=== PATIENT | male | born 1985 | race Caucasian/White ===

== ENCOUNTER 2016-11-13 18:13 | Emergency (ER) | payer MEDICAID, OTHER ==
[2016-11-13 18:20] VITALS: RESP 18
--- NOTE | 2016-11-13 18:54 | ED ---
Abdominal Pain HPI - General Chief Complaint: Abdominal Pain Stated Complaint: abdominal pain, bulge on top of stomach Time Seen by Provider: 11/13/16 18:21 Source: patient, family Mode of arrival: wheelchair Limitations: no limitations - History of Present Illness Initial Comments: This is a 30-year-old male who presents emergency department for abdominal pain. He states it started this morning and has persisted throughout the day. He states that it is midline in his abdomen and worse with pushing on it. He states that he also has noticed some bulging in his abdomen. He is notices these bulges previously however never had them evaluated. He denies any constipation or diarrhea. No vomiting. No other complaints. - Related Data Home Medications Medication Instructions Recorded Confirmed Cyanocobalamin (Vitamin B-12) 1,000 mcg PO DAILY 11/13/16 11/13/16 [Vitamin B-12] Levothyroxine Sodium [Synthroid] 75 mcg PO DAILY 11/13/16 11/13/16 Multivitamins, Thera [Multivitamin 1 tab PO DAILY 11/13/16 11/13/16 (formulary)] Allergies Allergy/AdvReac Type Severity Reaction Status Date / Time No Known Allergies Allergy Verified 11/13/16 18:50 Review of Systems ROS Statement: Those systems with pertinent positive or pertinent negative responses have been documented in the HPI. ROS Other: All systems not noted in ROS Statement are negative. Past Medical History Past Medical History: Thyroid Disorder Additional Past Medical History / Comment(s): Scoliosis, Down syndrome, tubes in bilateral ears History of Any Multi-Drug Resistant Organisms: None Reported Past Surgical History: Adenoidectomy, Tonsillectomy Past Psychological History: Depression, PTSD Smoking Status: Never smoker Past Alcohol Use History: Occasional Past Drug Use History: None Reported General Exam - General Exam Comments Initial Comments: Constitutional: Awake alert Appears comfortable Head: Normocephalic atraumatic Eyes: no conjunctival injection No scleral icterus EOMI Neck: No JVD Supple Heart: Regular rate rhythm normal S1-S2 no murmurs Lungs: Clear to auscultation bilaterally No wheezing No rales Abdomen: Soft nondistended tender to palpation generally without rebound or guarding, there are 2 midline bulges which appear to be midline hernias. These were reduced at bedside however the patient had significant tenderness with reduction. Extremities: Non edematous DP pulses intact Radial pulses intact Neuro: A&Ox3 No focal neurologic deficits Psych: Appropriate mood and affect Limitations: no limitations Course Vital Signs 11/13/16 18:16 Temperature 98.6 F Pulse Rate 81 Respiratory 18 Rate Blood Pressure 142/87 O2 Sat by Pulse 100 Oximetry Medical Decision Making - Medical Decision Making This is a 30-year-old male presents emergency department for abdominal pain and abdominal lumps. Clinically he appeared to have to midline hernias that were reducible at bedside. Computed tomography scan confirmed fat-containing ventral hernias. The patient's pain was improved after reduction of these hernias. At this time the patient can go home. I told to follow-up with his primary care doctor. He is also given surgery for evaluation if requested. Patient did take Motrin Tylenol as needed at home. He can return if he has worsening or changing symptoms. All questions were answered. - Lab Data Result diagrams: 11/13/16 18:45 11/13/16 18:45 Lab Results 11/13/16 11/13/16 Range/Units 18:45 18:45 WBC 8.2 (3.8-10.6) k/uL RBC 5.16 (4.30-5.90) m/uL Hgb 16.7 (13.0-17.5) gm/dL Hct 49.0 (39.0-53.0) % MCV 95.0 (80.0-100.0) fL MCH 32.4 (25.0-35.0) pg MCHC 34.2 (31.0-37.0) g/dL RDW 13.1 (11.5-15.5) % Plt Count 294 (150-450) k/uL Neutrophils % 65 % Lymphocytes % 22 % Monocytes % 7 % Eosinophils % 1 % Basophils % 1 % Neutrophils # 5.3 (1.3-7.7) k/uL Lymphocytes # 1.8 (1.0-4.8) k/uL Monocytes # 0.6 (0-1.0) k/uL Eosinophils # 0.1 (0-0.7) k/uL Basophils # 0.1 (0-0.2) k/uL Sodium 139 (137-145) mmol/L Potassium 4.5 (3.5-5.1) mmol/L Chloride 104 (98-107) mmol/L Carbon Dioxide 25 (22-30) mmol/L Anion Gap 10 mmol/L BUN 19 (9-20) mg/dL Creatinine 1.20 (0.66-1.25) mg/dL Est GFR (MDRD) Af Amer >60 (>60 ml/min/1.73 sqM) Est GFR (MDRD) Non-Af >60 (>60 ml/min/1.73 sqM) Glucose 88 (74-99) mg/dL Calcium 9.0 (8.4-10.2) mg/dL Total Bilirubin 0.4 (0.2-1.3) mg/dL AST 41 (17-59) U/L ALT 55 (21-72) U/L Alkaline Phosphatase 80 (38-126) U/L Total Protein 7.1 (6.3-8.2) g/dL Albumin 4.2 (3.5-5.0) g/dL Disposition Clinical Impression: Ventral hernia, Abdominal pain Disposition: HOME SELF-CARE Condition: Stable Instructions: Abdominal Pain (ED), Ventral Hernia (ED) Referrals: Adrian Rogers MD [Primary Care Provider] - 1-2 days Abiola Weaver MD [STAFF PHYSICIAN] - 1-2 days
[2016-11-13 19:08] LABS: Basophils # (A) 0.1 k/uL (0-0.2); Basophils % (A) 1 %; CH 32.9; CHCM 34.8; Eosinophils # (A) 0.1 k/uL (0-0.7); Eosinophils % (A) 1 %; HDW 2.53; HGB 16.7 gm/dL (13.0-17.5); Luc # (Auto) 0.29; Luc % (Auto) 4; Lymphocytes # (A) 1.8 k/uL (1.0-4.8); Lymphocytes % (A) 22 %; MCH 32.4 pg (25.0-35.0); MCHC 34.2 g/dL (31.0-37.0); Mean Platelet Volume 6.4; Monocytes # (A) 0.6 k/uL (0-1.0); Monocytes % (A) 7 %; Neutrophils # (A) 5.3 k/uL (1.3-7.7); Neutrophils % (A) 65 %; RBC 5.16 m/uL (4.30-5.90); RDW 13.1 % (11.5-15.5); WBC 8.2 k/uL (3.8-10.6); WBC (Perox) 8.04
[2016-11-13 19:12] LABS: ALT 55 U/L (21-72); AST 41 U/L (17-59); Alkaline Phosphatase 80 U/L (38-126); Anion Gap 10 mmol/L; Blood Urea Nitrogen 19 mg/dL (9-20); Carbon Dioxide 25 mmol/L (22-30); Chloride 104 mmol/L (98-107); Glucose 88 mg/dL (74-99); Non-African American GFR(MDRD) >60 (>60 ml/min/1.73 sqM); Potassium 4.5 mmol/L (3.5-5.1); Sodium 139 mmol/L (137-145); Total Bilirubin 0.4 mg/dL (0.2-1.3); Total Protein 7.1 g/dL (6.3-8.2)
--- NOTE | 2016-11-13 19:31 | CT ---
EXAMINATION TYPE: CT abdomen pelvis wo con DATE OF EXAM: 11/13/2016 COMPARISON: NONE HISTORY: Mid Abdominal pain CT DLP: 704.4 mGycm Examination of the solid and hollow viscera is limited given the lack of contrast. FINDINGS: LUNG BASES: No evidence for nodule. No evidence for infiltrate. LIVER/GB: The gallbladder is unremarkable. No space-occupying hepatic lesion. PANCREAS: No pancreatic mass identified. No inflammatory process seen. SPLEEN: No evidence for splenomegaly. No intrasplenic lesions seen. ADRENALS: No adrenal nodules identified. No evidence for thickening. KIDNEYS: No evidence for renal mass. No nephrolithiasis. No hydronephrosis. BOWEL: Appendix has a normal appearance. No evidence of bowel obstruction. No inflammatory process. Lymph nodes: No evidence for adenopathy greater than 1 cm. Abdominal aorta: Atheromatous changes seen. No evidence for aneurysm. Genital organs: No significant abnormality. Other: Small fat-containing midline anterior abdominal wall hernia at the level of the pancreas seen best on axial image 69 and coronal image 63. additional supraumbilical midline hernia also containing fat. Scoliotic curvature lumbar spine convex to the right. IMPRESSION: 1. SMALL MIDLINE VENTRAL HERNIAS AT 2 SITES NOTED ABOVE. EXAMINATION IS OTHERWISE UNREMARKABLE.
[2016-11-13 19:58] VITALS: BP 128/67; PULSE 79; TEMP 97.9
== END 2016-11-13 20:00 | disposition home or self-care (01) ==
LOC: EC 18:13
DX: K43.9 Ventral hernia without obstruction or gangrene (principal); E07.9 Disorder of thyroid, unspecified; Z79.899 Other long term (current) drug therapy
CPT/HCPCS: 36415; 74176; 80053; 85025; 99284

== ENCOUNTER → 2018-05-02 | Outpatient (CLI) | payer MEDICAID, OTHER ==
[2018-05-02 11:05] LABS: HCT 54.4 % (39.0-53.0); HGB 17.6 gm/dL (13.0-17.5); MCH 31.8 pg (25.0-35.0); MCHC 32.3 g/dL (31.0-37.0); MCV 98.4 fL (80.0-100.0); Mean Platelet Volume 5.9; Platelet Count 303 k/uL (150-450); RBC 5.53 m/uL (4.30-5.90); RDW 13.3 % (11.5-15.5); WBC 4.5 k/uL (3.8-10.6)
[2018-05-02 17:06] LABS: Albumin 4.4 g/dL (3.80-4.90); Albumin/Globulin Ratio 1.83 (1.60-3.17); Anion Gap 6.8 mmol/L (4.00-12.00); Calcium 9.6 mg/dL (8.7-10.3); Carbon Dioxide 30.2 mmol/L (21.6-31.8); Globulin 2.4 g/dL (1.6-3.3); LDL Cholesterol,Calculated 156.2 mg/dL (0.0-131.0); Potassium 4.6 mmol/L (3.5-5.5); Total Bilirubin 0.5 mg/dL (0.2-1.2); Total Protein 6.8 g/dL (6.2-8.2); VLDL Calculation 40.8 mg/dL (5.00-40.00)
== END ==
LOC: LABWHC1 10:31
PROVIDERS: ATTEND Family Medicine
DX: Z00.01 Encounter for general adult medical examination with abnormal findings (principal); E03.9 Hypothyroidism, unspecified
CPT/HCPCS: 36415; 80053; 80061; 84439; 84443; 84481; 85027

== ENCOUNTER 2019-01-20 20:29 | Emergency (ER) | payer MEDICAID, OTHER ==
[2019-01-20 22:26] LABS: Basophils # (A) 0.2 k/uL (0-0.2); Basophils % (A) 2 %; Eosinophils # (A) 0.1 k/uL (0-0.7); Eosinophils % (A) 1 %; HCT 51.2 % (39.0-53.0); HGB 17.1 gm/dL (13.0-17.5); Lymphocytes % (A) 28 %; MCH 32.2 pg (25.0-35.0); MCHC 33.4 g/dL (31.0-37.0); MCV 96.5 fL (80.0-100.0); Mean Platelet Volume 5.6; Monocytes # (A) 0.6 k/uL (0-1.0); Monocytes % (A) 8 %; Neutrophils # (A) 4.1 k/uL (1.3-7.7); Neutrophils % (A) 59 %; Platelet Count 299 k/uL (150-450); RDW 12.8 % (11.5-15.5)
[2019-01-20 22:48] LABS: African American GFR (CKD) >90 (>60 ml/min/1.73 sqM); Amylase 48 U/L (30-110); Anion Gap 10 mmol/L; Blood Urea Nitrogen 16 mg/dL (9-20); Calcium 9.4 mg/dL (8.4-10.2); Carbon Dioxide 25 mmol/L (22-30); Chloride 105 mmol/L (98-107); Glucose 95 mg/dL (74-99); Sodium 140 mmol/L (137-145)
[2019-01-20 23:06] LABS: ALT 36 U/L (21-72); AST 47 U/L (17-59); Albumin 4.6 g/dL (3.5-5.0); Alkaline Phosphatase 84 U/L (38-126); Total Bilirubin 0.9 mg/dL (0.2-1.3)
--- NOTE | 2019-01-20 23:18 | ED ---
General Adult HPI - General Chief complaint: Recheck/Abnormal Lab/Rx Stated complaint: Hernia Time Seen by Provider: 01/20/19 21:33 Source: patient, family, RN notes reviewed, old records reviewed Mode of arrival: ambulatory Limitations: no limitations - History of Present Illness Initial comments: 33 yo male patient presented for abdominal pain and distention as well as nausea. Patient has known anterior abdominal hernia believes this is increased in size. Patient does have Down syndrome together patient and his mother are able to provide detailed history. He's had increased abdominal distention as well as early satiety. He's had normal bowel movements including today. He has had positive flatus today as well. He has been seen by general surgery for intra-abdominal hernia in the past. - Related Data Home Medications Medication Instructions Recorded Confirmed Cyanocobalamin (Vitamin B-12) 1,000 mcg PO DAILY 11/13/16 11/13/16 [Vitamin B-12] Levothyroxine Sodium [Synthroid] 75 mcg PO DAILY 11/13/16 11/13/16 Multivitamins, Thera [Multivitamin 1 tab PO DAILY 11/13/16 11/13/16 (formulary)] Allergies Allergy/AdvReac Type Severity Reaction Status Date / Time No Known Allergies Allergy Verified 01/20/19 21:08 Review of Systems ROS Statement: Those systems with pertinent positive or pertinent negative responses have been documented in the HPI. ROS Other: All systems not noted in ROS Statement are negative. Past Medical History Past Medical History: Thyroid Disorder Additional Past Medical History / Comment(s): Scoliosis, Down syndrome, tubes in bilateral ears, hernia History of Any Multi-Drug Resistant Organisms: None Reported Past Surgical History: Adenoidectomy, Tonsillectomy Past Psychological History: Depression, PTSD Smoking Status: Never smoker Past Alcohol Use History: Occasional Past Drug Use History: None Reported General Exam Limitations: no limitations General appearance: alert, in no apparent distress Head exam: Present: atraumatic, normocephalic Eye exam: Present: normal appearance, PERRL ENT exam: Present: normal exam Neck exam: Present: normal inspection. Absent: tenderness, meningismus Respiratory exam: Present: normal lung sounds bilaterally. Absent: respiratory distress, wheezes Cardiovascular Exam: Present: regular rate, normal rhythm GI/Abdominal exam: Present: soft, distended, tenderness, hernia (Anterior abdominal hernia) Extremities exam: Present: normal inspection, normal capillary refill. Absent: pedal edema Course Vital Signs 01/20/19 21:03 Temperature 98.7 F Pulse Rate 71 Respiratory 18 Rate Blood Pressure 126/68 O2 Sat by Pulse 96 Oximetry Medical Decision Making - Medical Decision Making 32-year-old male with abdominal pain and anterior abdominal hernia. On exam patient has a nonreducible anterior abdominal hernia which is minimally painful. Remainder of abdominal exam is unremarkable. Vital signs are stable. Laborat ory studies are within normal limits including normal white blood cell count and normal lactic acid. CT is performed with IV contrast, shows 7.5 cm umbilical hernia which is incarcerated and contains only omental fat no bowel. Patient's will take [id number] pain medication and follow-up with general surgery. He has an appointment scheduled general surgery in the upcoming weeks. He will return the emergency department with development of fever, worsening pain, obstructive symptoms including vomiting, lack of bowel movement or flatus. - Lab Data Result diagrams: 01/20/19 22:02 01/20/19 22:02 Lab Results 01/20/19 01/20/19 01/20/19 Range/Units 22:02 22:02 22:02 WBC 7.0 (3.8-10.6) k/uL RBC 5.30 (4.30-5.90) m/uL Hgb 17.1 (13.0-17.5) gm/dL Hct 51.2 (39.0-53.0) % MCV 96.5 (80.0-100.0) fL MCH 32.2 (25.0-35.0) pg MCHC 33.4 (31.0-37.0) g/dL RDW 12.8 (11.5-15.5) % Plt Count 299 (150-450) k/uL Neutrophils % 59 % Lymphocytes % 28 % Monocytes % 8 % Eosinophils % 1 % Basophils % 2 % Neutrophils # 4.1 (1.3-7.7) k/uL Lymphocytes # 2.0 (1.0-4.8) k/uL Monocytes # 0.6 (0-1.0) k/uL Eosinophils # 0.1 (0-0.7) k/uL Basophils # 0.2 (0-0.2) k/uL Sodium 140 (137-145) mmol/L Potassium 5.0 (3.5-5.1) mmol/L Chloride 105 (98-107) mmol/L Carbon Dioxide 25 (22-30) mmol/L Anion Gap 10 mmol/L BUN 16 (9-20) mg/dL Creatinine 1.13 (0.66-1.25) mg/dL Est GFR (CKD-EPI)AfAm >90 (>60 ml/min/1.73 sqM) Est GFR (CKD-EPI)NonAf 85 (>60 ml/min/1.73 sqM) Glucose 95 (74-99) mg/dL Plasma Lactic Acid Elia 1.3 (0.7-2.0) mmol/L Calcium 9.4 (8.4-10.2) mg/dL Total Bilirubin 0.9 (0.2-1.3) mg/dL AST 47 (17-59) U/L ALT 36 (21-72) U/L Alkaline Phosphatase 84 (38-126) U/L Total Protein 8.0 (6.3-8.2) g/dL Albumin 4.6 (3.5-5.0) g/dL Amylase 48 (30-110) U/L Lipase 177 (23-300) U/L Disposition Clinical Impression: Umbilical hernia without obstruction and without gangrene Disposition: HOME SELF-CARE Condition: Good Instructions (If sedation given, give patient instructions): Umbilical Hernia (ED) Is patient prescribed a controlled substance at d/c from ED?: No Referrals: Adrian Rogers MD [Primary Care Provider] - 1-2 days Ethel Lozano MD [STAFF PHYSICIAN] - 1-2 days Time of Disposition: 23:37
--- NOTE | 2019-01-20 23:24 | CT ---
EXAMINATION TYPE: CT abdomen pelvis w con DATE OF EXAM: 01/20/2019 COMPARISON: 11/13/2016 HISTORY: Patient presents with umbilical hernia. CT DLP: 1215.3 mGycm Automated exposure control for dose reduction was used. TECHNIQUE: Helical acquisition of images was performed from the lung bases through the pelvis. CONTRAST: Performed without Oral Contrast and with IV Contrast, patient injected with 100 mL of Isovue 300. FINDINGS: There is no pleural fluid. Lung bases are clear of infiltrate. Heart size is normal. There is no radha cardial effusion. There is small hiatal hernia. Liver spleen pancreas gallbladder appear normal. Bile ducts are not dilated. There is no adrenal mass . Kidneys show satisfactory contrast opacification. There is no hydronephrosis. Ureters are not dilat ed. There is large umbilical hernia that contains fat. Hernia measures 7.5 cm. Bladder distends smoothly. There is no inguinal hernia. There is some retained fecal material in the rectum. There is no free fluid in the pelvis. There is no mesenteric edema. There is no ascites or fr ee air. There is no sign of thickened appendix. Lumbar spine is intact. There is mild thoracolumbar d extroscoliosis. There is no compression fracture. IMPRESSION: SMALL HIATAL HERNIA. INCARCERATED UMBILICAL HERNIA CONTAINS OMENTAL FAT AND APPEARS NEW COMPARED TO O LD EXAM. NO BOWEL OBSTRUCTION. APPENDIX NOT SEEN.
[2019-01-20 23:59] VITALS: BP 136/73; PULSE 82; RESP 16; TEMP 97.6
== END 2019-01-20 23:59 | disposition home or self-care (01) ==
LOC: EC 20:29
DX: K42.9 Umbilical hernia without obstruction or gangrene (principal); E07.9 Disorder of thyroid, unspecified; Z79.890 Hormone replacement therapy
CPT/HCPCS: 36415; 80053; 82150; 83605; 83690; 85025; 74177; 99284; Q9967

== ENCOUNTER → 2019-02-08 | Day surgery (SDC) | payer MEDICAID, OTHER ==
[2019-02-02 10:54] VITALS: BMI 31.4
[~2019-02-08] MED LIST: DEXAMETHASONE SOD PHOSPHATE 10 MG/ML 1 ML VIAL IV ONE; GLYCOPYRROLATE 0.2 MG/ML 2 ML VIAL ONE; HEPARIN SODIUM,PORCINE 5,000 UNIT/ML 1 ML VIAL SQ ONE; KETOROLAC 30 MG/ML 1 ML VIAL IVP ONE; LACTATED RINGERS 1,000 ML IV ONE; LACTATED RINGERS 1,000 ML IV SCH; LIDOCAINE 1% 20 ML VIAL (10MG/ML) FOR IV START INTRADERMA PRN; LIDOCAINE 1% INJ 10MG/ML (20 ML MDV) ONE; LIDOCAINE 1%-EPI 1:100,000 20 ML VIAL SQ ONE; MIDAZOLAM 2 MG/2 ML VIAL IVP ONE; NEOSTIGMINE 1 MG/ML 10 ML VIAL ONE; PHENYLEPHRINE-0.9% NACL SYG 1 MG/10 ML SYRINGE ONE; PROPOFOL 10 MG/ML 20 ML VIAL IV ONE; ROCURONIUM BROMIDE 10 MG/ML 10 ML VIAL IV ONE; ROPIVACAINE 5 MG/ML 30 ML VIAL ONE; SCOPOLAMINE 1.5MG/72HR PATCH TRANSDERM ONE; SUCCINYLCHOLINE CHLORIDE 100 MG/5 ML SYR IV ONE; fentaNYL (PF) 50 MCG/ML 2 ML AMP IVP ONE; fentaNYL (PF) 50 MCG/ML 2 ML AMP ONE
[2019-02-08] MEDS: ONDANSETRON 4 MG/2 ML VIAL IVP ONE ×2 (06:38→09:31)
--- NOTE | 2019-02-08 07:28 | P.GSHP ---
History of Present Illness H&P Date: 02/08/19 CHIEF COMPLAINT: Ventral hernia HISTORY OF PRESENT ILLNESS: The patient is a 33-year-old male who presents with a history of swelling and pain along the abdomen from a hernia. Now he presents for surgical intervention. PAST MEDICAL HISTORY: Please see list. PAST SURGICAL HISTORY: Please see list. MEDICATIONS: Please see list. ALLERGIES: Please see list. SOCIAL HISTORY: No illicit drug use FAMILY HISTORY: No reports of Crohn disease or ulcerative colitis. REVIEW OF ORGAN SYSTEMS: CONSTITUTIONAL: No reports of fevers or chills. No reports of weight loss despite prior attempts. GI: Denies any blood in stools or constipation. PHYSICAL EXAM: VITAL SIGNS: Stable GENERAL: Well-developed pleasant male in no acute distress. HEENT: No scleral icterus. Extraocular movements grossly intact. Moist buccal mucosa. NECK: Supple without lymphadenopathy. CHEST: Unlabored respirations. Equal bilateral excursions. CARDIOVASCULAR: Regular rate and rhythm. Distal 2+ pulses. ABDOMEN: Soft, nondistended. Palpable defect of the abdomen. No peritoneal signs. MUSCULOSKELETAL: No clubbing, cyanosis, or edema. ASSESSMENT: 1. Ventral hernia PLAN: 1. Recommend proceeding with robotic ventral hernia repair with mesh. 2. Benefits and risks of surgical intervention was discussed including possibility of open technique. 3. DVT prophylaxis. 4. Antibiotic prophylaxis. Past Medical History Past Medical History: Eye Disorder, Hyperlipidemia, Musculoskeletal Disorder, Skin Disorder, Thyroid Disorder Additional Past Medical History / Comment(s): Scoliosis, leg length discrepancy (uses shoe lift), Down syndrome, ventral hernia. Rosacea. Recent Conjunctivitis, on eye drop currently. History of Any Multi-Drug Resistant Organisms: None Reported Past Surgical History: Adenoidectomy, Ear Surgery, Tonsillectomy Additional Past Surgical History / Comment(s): BMT x2. Past Anesthesia/Blood Transfusion Reactions: Postoperative Nausea & Vomiting (PONV) Additional Past Anesthesia/Blood Transfusion Reaction / Comment(s): A little agitated after CT w/ anesthesia. Smoking Status: Never smoker - Past Family History Mother Family Medical History: No Reported History Medications and Allergies Home Medications Medication Instructions Recorded Confirmed Type Levothyroxine Sodium [Synthroid] 75 mcg PO DAILY 11/13/16 02/02/19 History Steroid Eye Drop (Unknown Name 1 drop BOTH EYES TID 02/02/19 History Allergies Allergy/AdvReac Type Severity Reaction Status Date / Time No Known Allergies Allergy Verified 02/08/19 06:22 Surgical - Exam Vital Signs Temp Pulse Resp BP Pulse Ox 98.2 F 68 16 143/90 96 02/08/19 06:28 02/08/19 06:28 02/08/19 06:28 02/08/19 06:28 02/08/19 06:28
--- NOTE | 2019-02-08 07:28 | P.ANPRN ---
Procedure Note - Anesthesia - Nerve Block Performed Bilateral Rectus Abdominis Single Time Out Performed: Yes Date of Procedure: 02/08/19 Procedure Start Time: 07:00 Procedure Stop Time: 07:11 Location of Patient: PreOp Indication: Acute Post-Operative Pain, Requested by Surgeon Specifically requested for management of pain by DrDonna: Ethel Lozano Sedation Type: Sedate with meaningful contact maintained Preparation: Sterile Prep Position: Supine Catheter: None Needle Types: Pajunk Needle Gauge: 20 Ultrasound used to visualize needle placement: Yes Ultrasound used to observe medication spread: Yes Injectate: Other (see comment) (0.25% ropivacaine/0.5% lidocaine 25 mL per side) Adjunct: Epinephrine (see comment for dilution ratio) (1:200,000) Blood Aspirated: No Pain Paresthesia on Injection Noted: No Resistance on Injection: Normal Image Stored and Saved: Yes Events: Uneventful and Well Tolerated
[2019-02-08] MEDS: HYDROmorphone 0.5 MG/0.5 ML SYRINGE IVP PRN ×2 (09:31→09:38)
[2019-02-08 09:33] VITALS: TEMP 98.4
--- NOTE | 2019-02-08 09:48 | P.OP ---
Date of Procedure: 02/08/19 Description of Procedure: SURGEON: ETHEL LOZANO MD 1. JOAO RAMIREZ PREOPERATIVE DIAGNOSES: 1. Ventral hernia with incarceration epigastrium, initial 2. Scoliosis 3. Down's syndrome 4. Hypothyroidism 5. Obesity, BMI 30.8 POSTOPERATIVE DIAGNOSES: 1. Ventral hernia x 2 with incarceration epigastrium 6-cm and upper midline 3- cm 2. Scoliosis 3. Down's syndrome 4. Hypothyroidism 5. Obesity, BMI 30.8 OPERATION: 1. Robotic-assisted da Polina Xi laparoscopic repair of initial incarcerated ventral hernia 2 with mesh, ventralight ST mesh 11.4 cm Anesthesia: GETA, regional, local Estimated Blood Loss (ml): 5 Pathology: none sent COMPLICATIONS: None. Operative Findings: 1. Ventral hernia above umbilicus, 5 x 6 cm 2. Upper midline defect, 3 x 2 cm defect 3. No inguinal hernia or umbilical hernia 4. Fascia repaired using #1 V-lock suture 5. Mesh placement INDICATIONS: The patient is a 33-year-old male who presents with initial painful swelling of the epigastrium and above the umbilicus. Surgical intervention with laparoscopic versus robotic and open techniques were reviewed. Placement of mesh was also reviewed. Benefits and risks were thoroughly described. Informed consent was obtained. DESCRIPTION OF PROCEDURE: The patient was brought into the operating room and laid in supine position. After general induction, the abdomen had been prepped and draped in standard sterile fashion. Ioban draping was also placed. Prior to incision, a timeout protocol was confirmed with surgical team regarding the patient's name including procedures to be performed. The robot was primed prior to the procedure. A field block using local anesthetic was placed along hernia site including the proposed port sites. Initial incision was made with an #11 blade along the left upper quadrant. A 0 degree 5 mm laparoscopic trocar entry was performed and insufflated. Three 8 mm ports were placed along the right lateral abdominal wall under direct localization. The 5-mm port was exchanged for an 12 mm port. Placements of the ports were 15 cm from the target anatomy and 10 cm apart. The Babytreei Xi robot was previously primed, prepped and draped then docked along the right side of the patient. I then sat at the robot TITIN Techi Xi console where working arms of the robot including Bovie cautery connected to robotic scissors, vessel sealer, needle regional company flatbed truck driver, and graspers placed by the statistical assistant. Incarcerated omental contents were found along the supraumbilical hernia over 6 x 5 cm size. The defects were reduced including with lysis of adhesions using cautery. Another hernia was wound at the falciform ligament, 3 cm in size similarly incarcerated. Two defects were found and reduced of its incarcerated contents. The incarcerated contents were reduced as the peritoneal fat was cleaned from the abdominal wall. Next, hemostasis was checked with cautery. The hernia defects were oversewn using #1 nonabsorbable V-lock suture for each defect separately with fascial imbrication x 3. Next, ventralight ST mesh 11.4 cm was placed with the rough side towards the abdominal wall as to cover the epigastric including upper midline defect. 2-0 VLOC 12 inch sutures were used to fixate the mesh. A final endoscopic imaging was obtained. All instruments and pneumoperitoneum were evacuated from the abdominal cavity. The da Polina Xi robot was undocked from the patient. I re-scrubbed into the case for closure of incisions. The fascia of the 12-mm port was probed and less than 8-mm in size. The incisions were re-approximated using 4-0 Monocryl in an interrupted subcuticular fashion. Liquid glue was applied to the skin after cleansing the s kin with normal saline and dilute hydrogen peroxide. An abdominal binder was placed. At the end of the procedure, needle, sponge, and instrument count had been verified correct by surgical territory manager. The patient was taken to the postanesthesia care unit in stable condition. Plan - Discharge Summary Discharge Rx Participant: No New Discharge Prescriptions: New Ibuprofen [Motrin] 600 mg PO Q8HR PRN #30 tab PRN Reason: Pain Acetaminophen Tab [Tylenol Tab] 500 mg PO Q6H PRN #30 tablet PRN Reason: Pain No Action Levothyroxine Sodium [Synthroid] 75 mcg PO DAILY Steroid Eye Drop (Unknown Name 1 drop BOTH EYES TID Discharge Medication List Levothyroxine Sodium [Synthroid] 75 mcg PO DAILY 11/13/16 [History] Steroid Eye Drop (Unknown Name 1 drop BOTH EYES TID 02/02/19 [History] Acetaminophen Tab [Tylenol Tab] 500 mg PO Q6H PRN #30 tablet 02/08/19 [Rx] Ibuprofen [Motrin] 600 mg PO Q8HR PRN #30 tab 02/08/19 [Rx] Follow up Appointment(s)/Referral(s): Ethel Lozano MD [STAFF PHYSICIAN] - 02/16/19 Patient Instructions/Handouts: Abdominal Binder (DC), Ventral Hernia Repair (DC) Activity/Diet/Wound Care/Special Instructions: No lifting over 10 pounds in 2 weeks, Feb 20. May shower. No bath tub soaks for two weeks until Feb 20. Diet as tolerated. Apply ice to incisions for pain. Discharge Disposition: HOME SELF-CARE
[2019-02-08 10:47] VITALS: RESP 18
[2019-02-08 12:35] VITALS: BP 99/66; PULSE 94
== END | disposition home or self-care (01) ==
LOC: OR 05:59
PROVIDERS: ATTEND Surgery Plastic and Reconstructive Surgery
DX: K43.6 Other and unspecified ventral hernia with obstruction, without gangrene (principal); M41.9 Scoliosis, unspecified; Q90.9 Down syndrome, unspecified; E03.9 Hypothyroidism, unspecified; E66.9 Obesity, unspecified; E78.5 Hyperlipidemia, unspecified; H10.9 Unspecified conjunctivitis; Z68.30 Body mass index [BMI] 30.0-30.9, adult; Z79.890 Hormone replacement therapy; Z90.89 Acquired absence of other organs; Z96.22 Myringotomy tube(s) status
CPT/HCPCS: 49653; 64488; C1781; J2250; J1644; J1100; J2710; J0690; J2405; J2001; J3010; J1885; J2795; J2370; J0330; J2704; J1170

== ENCOUNTER → 2019-09-10 | Outpatient (CLI) | payer OTHER ==
[2019-09-10 15:15] LABS: Chol/HDL Ratio 5.68; LDL Cholesterol,Calculated 135.6 mg/dL (0.0-131.0); VLDL Calculation 42.4 mg/dL (5.00-40.00)
[2019-09-10 15:24] LABS: T4, Free (Free Thyroxine) 1.2 ng/dL (0.80-1.80)
== END | disposition home or self-care (01) ==
LOC: LABWHC1 08:58
PROVIDERS: ATTEND Family Medicine
DX: Z00.01 Encounter for general adult medical examination with abnormal findings (principal); E03.9 Hypothyroidism, unspecified
CPT/HCPCS: 36415; 80061; 84439; 84443; 84481

== ENCOUNTER 2020-05-28 11:27 | Inpatient (IN) | payer OTHER ==
[2020-05-28] MEDS ORDERED: SODIUM CHLORIDE 0.9% 1,000 ML IV STA ×2 (12:28)
[2020-05-28] MEDS ORDERED: ONDANSETRON 4 MG/2 ML VIAL IVP STA (12:28)
--- NOTE | 2020-05-28 12:31 | ED ---
SOB HPI - General Chief Complaint: Shortness of Breath Stated Complaint: fever/vomiting/low oxygen Time Seen by Provider: 05/28/20 12:10 Source: patient, family, RN notes reviewed Mode of arrival: wheelchair Limitations: no limitations - History of Present Illness Initial Comments: Is a 34-year-old male with a history of Down syndrome who was diagnosed with Covid 19 on the this month after exposure in the and who presents today with complaints of fever of 101.6 oral intake for the past 2-3 days some shortness of breath nausea vomiting diarrhea also slight cough. He initially seemed to be doing well up until several days ago. He is not able keep fluids down. Information is gathered from his family. MD Complaint: shortness of breath - Related Data Home Medications Medication Instructions Recorded Confirmed Levothyroxine Sodium [Synthroid] 75 mcg PO DAILY 11/13/16 05/28/20 Vitamin A,C,E(Unknown) 1 tab PO DAILY 05/28/20 05/28/20 Vitamin B-12(Unknown Dose) 1 tab PO DAILY 05/28/20 05/28/20 Vitamin D3(Unknown Dose) 1 tab PO DAILY 05/28/20 05/28/20 Zinc 50 mg PO DAILY 05/28/20 05/28/20 Allergies Allergy/AdvReac Type Severity Reaction Status Date / Time No Known Allergies Allergy Verified 05/28/20 13:15 Review of Systems ROS Statement: Those systems with pertinent positive or pertinent negative responses have been documented in the HPI. ROS Other: All systems not noted in ROS Statement are negative. Limitations: ROS unobtainable due to patients medical condition Past Medical History Past Medical History: Eye Disorder, Hyperlipidemia, Musculoskeletal Disorder, Skin Disorder, Thyroid Disorder Additional Past Medical History / Comment(s): Scoliosis, leg length discrepancy (uses shoe lift), Down syndrome, ventral hernia. Rosacea. Recent Conjunctivitis, on eye drop currently. History of Any Multi-Drug Resistant Organisms: None Reported Past Surgical History: Adenoidectomy, Ear Surgery, Hernia Repair, Tonsillectomy Additional Past Surgical History / Comment(s): BMT x2. Past Anesthesia/Blood Transfusion Reactions: Postoperative Nausea & Vomiting (P ONV) Additional Past Anesthesia/Blood Transfusion Reaction / Comment(s): A little agitated after CT w/ anesthesia. Past Psychological History: Depression, PTSD Smoking Status: Never smoker Past Alcohol Use History: Occasional Past Drug Use History: None Reported - Past Family History Mother Family Medical History: No Reported History General Exam - General Exam Comments Initial Comments: This a well-developed well-nourished awake alert male who is Limitations: no limitations General appearance: alert, anxious, in distress Head exam: Present: atraumatic, normocephalic, other (The typical appearance of Down syndrome) Eye exam: Present: normal appearance, PERRL, EOMI. Absent: scleral icterus, conjunctival injection, periorbital swelling ENT exam: Present: mucous membranes dry Neck exam: Present: normal inspection. Absent: tenderness, meningismus, lymphadenopathy Respiratory exam: Present: normal lung sounds bilaterally. Absent: respiratory distress, wheezes, rales, rhonchi, stridor Cardiovascular Exam: Present: regular rate, normal rhythm, normal heart sounds. Absent: systolic murmur, diastolic murmur, rubs, gallop, clicks GI/Abdominal exam: Present: soft, normal bowel sounds. Absent: distended, tenderness, guarding, rebound, rigid Extremities exam: Present: normal inspection, full ROM, normal capillary refill. Absent: tenderness, pedal edema, joint swelling, calf tenderness Back exam: Present: normal inspection Neurological exam: Present: alert, oriented X3, CN II-XII intact Psychiatric exam: Present: normal affect, normal mood Skin exam: Present: warm, dry, intact, normal color. Absent: rash Course Vital Signs 05/28/20 05/28/20 11:52 12:49 Temperature 98.0 F Pulse Rate 90 Respiratory 20 18 Rate Blood Pressure 109/73 O2 Sat by Pulse 93 L Oximetry Medical Decision Making - Medical Decision Making She is feeling somewhat better still is somewhat lethargic compared to his norm due to the circumstances the patient will be admitted I did discuss case with the patient's mother as well as Dr. Tobias. - Lab Data Result diagrams: 05/28/20 12:43 05/28/20 12:43 Lab Results 05/28/20 05/28/20 05/28/20 Range/Units 12:43 12:43 12:43 WBC 3.9 (3.8-10.6) k/uL RBC 5.59 (4.30-5.90) m/uL Hgb 18.7 H (13.0-17.5) gm/dL Hct 53.7 H (39.0-53.0) % MCV 95.9 (80.0-100.0) fL MCH 33.4 (25.0-35.0) pg MCHC 34.8 (31.0-37.0) g/dL RDW 12.4 (11.5-15.5) % Plt Count 139 L (150-450) k/uL MPV 7.5 Neutrophils % 72 % Lymphocytes % 16 % Monocytes % 7 % Eosinophils % 1 % Basophils % 2 % Neutrophils # 2.8 (1.3-7.7) k/uL Lymphocytes # 0.6 L (1.0-4.8) k/uL Monocytes # 0.3 (0-1.0) k/uL Eosinophils # 0.1 (0-0.7) k/uL Basophils # 0.1 (0-0.2) k/uL PT 10.8 (9.0-12.0) sec INR 1.0 (<1.2) APTT 25.7 (22.0-30.0) sec D-Dimer 0.39 (<0.60) mg/L FEU Sodium 138 (137-145) mmol/L Potassium 4.2 (3.5-5.1) mmol/L Chloride 104 (98-107) mmol/L Carbon Dioxide 23 (22-30) mmol/L Anion Gap 11 mmol/L BUN 15 (9-20) mg/dL Creatinine 1.19 (0.66-1.25) mg/dL Est GFR (CKD-EPI)AfAm >90 (>60 ml/min/1.73 sqM) Est GFR (CKD-EPI)NonAf 79 (>60 ml/min/1.73 sqM) Glucose 118 H (74-99) mg/dL Plasma Lactic Acid Elia (0.7-2.0) mmol/L Calcium 8.6 (8.4-10.2) mg/dL Magnesium 1.9 (1.6-2.3) mg/dL Total Bilirubin 0.6 (0.2-1.3) mg/dL AST 52 (17-59) U/L ALT 53 H (4-49) U/L Alkaline Phosphatase 94 (38-126) U/L Creatine Kinase 79 (55-170) U/L Troponin I (0.000-0.034) ng/mL NT-Pro-B Natriuret Pep pg/mL Total Protein 7.4 (6.3-8.2) g/dL Albumin 4.2 (3.5-5.0) g/dL 05/28/20 05/28/20 05/28/20 Range/Units 12:43 12:43 12:43 WBC (3.8-10.6) k/uL RBC (4.30-5.90) m/uL Hgb (13.0-17.5) gm/dL Hct (39.0-53.0) % MCV (80.0-100.0) fL MCH (25.0-35.0) pg MCHC (31.0-37.0) g/dL RDW (11.5-15.5) % Plt Count (150-450) k/uL MPV Neutrophils % % Lymphocytes % % Monocytes % % Eosinophils % % Basophils % % Neutrophils # (1.3-7.7) k/uL Lymphocytes # (1.0-4.8) k/uL Monocytes # (0-1.0) k/uL Eosinophils # (0-0.7) k/uL Basophils # (0-0.2) k/uL PT (9.0-12.0) sec INR (<1.2) APTT (22.0-30.0) sec D-Dimer (<0.60) mg/L FEU Sodium (137-145) mmol/L Potassium (3.5-5.1) mmol/L Chloride (98-107) mmol/L Carbon Dioxide (22-30) mmol/L Anion Gap mmol/L BUN (9-20) mg/dL Creatinine (0.66-1.25) mg/dL Est GFR (CKD-EPI)AfAm (>60 ml/min/1.73 sqM) Est GFR (CKD-EPI)NonAf (>60 ml/min/1.73 sqM) Glucose (74-99) mg/dL Plasma Lactic Acid Elia 1.1 (0.7-2.0) mmol/L Calcium (8.4-10.2) mg/dL Magnesium (1.6-2.3) mg/dL Total Bilirubin (0.2-1.3) mg/dL AST (17-59) U/L ALT (4-49) U/L Alkaline Phosphatase (38-126) U/L Creatine Kinase (55-170) U/L Troponin I <0.012 (0.000-0.034) ng/mL NT-Pro-B Natriuret Pep 15 pg/mL Total Protein (6.3-8.2) g/dL Albumin (3.5-5.0) g/dL - Radiology Data Radiology results: report reviewed (Imaging shows evidence of a left lower lobe infiltrate), image reviewed Disposition Clinical Impression: Left lower lobe pneumonia, Gastroenteritis, Dehydration, COVID-19 Disposition: [facility]MITT[facility] Condition: Fair Referrals: Adrian Rogers MD [Primary Care Provider] - 1-2 days
[2020-05-28 13:02] LABS: Basophils # (A) 0.1 k/uL (0-0.2); Basophils % (A) 2 %; Eosinophils # (A) 0.1 k/uL (0-0.7); Eosinophils % (A) 1 %; HCT 53.7 % (39.0-53.0); HGB 18.7 gm/dL (13.0-17.5); Lymphocytes # (A) 0.6 k/uL (1.0-4.8); Lymphocytes % (A) 16 %; MCH 33.4 pg (25.0-35.0); MCHC 34.8 g/dL (31.0-37.0); MCV 95.9 fL (80.0-100.0); Mean Platelet Volume 7.5; Monocytes # (A) 0.3 k/uL (0-1.0); Monocytes % (A) 7 %; Neutrophils # (A) 2.8 k/uL (1.3-7.7); Neutrophils % (A) 72 %; Platelet Count 139 k/uL (150-450); RBC 5.59 m/uL (4.30-5.90); RDW 12.4 % (11.5-15.5); WBC 3.9 k/uL (3.8-10.6)
[2020-05-28 13:03] LABS: ALT 53 U/L (4-49); African American GFR (CKD) >90 (>60 ml/min/1.73 sqM); Albumin 4.2 g/dL (3.5-5.0); Anion Gap 11 mmol/L; Blood Urea Nitrogen 15 mg/dL (9-20); Calcium 8.6 mg/dL (8.4-10.2); Carbon Dioxide 23 mmol/L (22-30); Chloride 104 mmol/L (98-107); Creatine Kinase 79 U/L (55-170); Glucose 118 mg/dL (74-99); Non-African American GFR(CKD) 79 (>60 ml/min/1.73 sqM); Sodium 138 mmol/L (137-145); Total Bilirubin 0.6 mg/dL (0.2-1.3); Total Protein 7.4 g/dL (6.3-8.2)
[2020-05-28 13:06] LABS: AST 52 U/L (17-59); Alkaline Phosphatase 94 U/L (38-126); Magnesium 1.9 mg/dL (1.6-2.3); Potassium 4.2 mmol/L (3.5-5.1)
[2020-05-28 13:09] LABS: D-Dimer 0.39 mg/L FEU (<0.60); Partial Thromboplastin Time 25.7 sec (22.0-30.0); Prothrombin Time 10.8 sec (9.0-12.0)
--- NOTE | 2020-05-28 13:09 | XR ---
EXAMINATION TYPE: XR chest 2V DATE OF EXAM: 05/28/2020 COMPARISON: None INDICATION: Difficulty breathing TECHNIQUE: Frontal and lateral views of the chest are obtained. FINDINGS: The heart size is normal. The pulmonary vasculature is normal. Minimal infiltrate is along the left diaphragm.: Vicky atelectasis or atypical pneumonia. IMPRESSION: 1. Mild infiltrate at the left lung base. Atelectasis and atypical pneumonia should be considered.
[2020-05-28] MEDS ORDERED: AZITHROMYCIN 500 MG in SODIUM CHLORIDE 0.9% 250 ML IVPB STA (14:00)
[2020-05-28] MEDS ORDERED: PNEUMONIA PROTOCOL UTILIZED 1 EACH MISC PO PRN (14:00)
[2020-05-28] MEDS ORDERED: ONDANSETRON 4 MG/2 ML VIAL IVP PRN (14:03)
[2020-05-28] MEDS: SODIUM CHLORIDE 0.9% 1,000 ML IV SCH ×2 (14:35→19:30)
[2020-05-28] MEDS ORDERED: ACETAMINOPHEN TAB 500 MG TAB PO PRN (16:38)
[2020-05-29] MEDS: SODIUM CHLORIDE 0.9% 1,000 ML IV SCH ×3 (03:55→22:08)
[2020-05-29] MEDS ORDERED: AZITHROMYCIN 500 MG TAB PO SCH (09:00)
--- NOTE | 2020-05-29 10:24 | XR ---
EXAMINATION TYPE: XR chest 1V DATE OF EXAM: 05/29/2020 COMPARISON: Chest x-ray 05/28/2020 HISTORY: Pneumonia TECHNIQUE: Single frontal view of the chest is obtained. FINDINGS: Airspace disease is present in the lower lobe on the left, lung volumes are low, some mini mal patchy density also present in the right lung. No evident pneumothorax or sizable effusion. Cardi ac mediastinal silhouette is stable. There is a spinal curvature. IMPRESSION: Correlate for pneumonia, follow-up recommended.
--- NOTE | 2020-05-29 12:32 | P.CNPUL ---
History of Present Illness Consult date: 05/29/20 Reason for consult: dyspnea History of present illness: 34-year-old male patient, Down syndrome, diagnosed having COVID 19 on 05/22/2020. The patient is department yesterday with fever of 11.6F and along with some increased shortness of breath and nausea and vomiting and diarrhea. He was also having some cough. His blood work showing a CRP of 11, CPK of 79, LFTs are normal, proBNP level of 15, electrolytes are normal, d-dimer is at 0.3, white cell count is at 3.9 with a hemoglobin of 18.7. Chest x-ray showing minimal infiltration of the lung bases bilaterally along with some elevation of the right hemidiaphragm. The patient's oxygenation is stable with 94% on room air oxygen. The patient's body mass index is 31.5. Review of Systems Those systems with pertinent positive or pertinent negative responses have been documented in the HPI. Past Medical History Past Medical History: Eye Disorder, Hyperlipidemia, Musculoskeletal Disorder, Skin Disorder, Thyroid Disorder Additional Past Medical History / Comment(s): Scoliosis, leg length discrepancy (uses shoe lift), Down syndrome, ventral hernia. Rosacea. Recent Conjunctivitis, on eye drop currently. History of Any Multi-Drug Resistant Organisms: None Reported Past Surgical History: Adenoidectomy, Ear Surgery, Hernia Repair, Tonsillectomy Additional Past Surgical History / Comment(s): BMT x2. Past Anesthesia/Blood Transfusion Reactions: Postoperative Nausea & Vomiting (PONV) Additional Past Anesthesia/Blood Transfusion Reaction / Comment(s): A little agitated after CT w/ anesthesia. Past Psychological History: Depression, PTSD Additional Psychological History / Comment(s): In counseling Smoking Status: Never smoker Past Alcohol Use History: Occasional Past Drug Use History: None Reported - Past Family History Mother Family Medical History: No Reported History Medications and Allergies Home Medications Medication Instructions Recorded Confirmed Type Levothyroxine Sodium [Synthroid] 75 mcg PO DAILY 11/13/16 05/28/20 History Vitamin A,C,E(Unknown) 1 tab PO DAILY 05/28/20 05/28/20 History Vitamin B-12(Unknown Dose) 1 tab PO DAILY 05/28/20 05/28/20 History Vitamin D3(Unknown Dose) 1 tab PO DAILY 05/28/20 05/28/20 History Zinc 50 mg PO DAILY 05/28/20 05/28/20 History Allergies Allergy/AdvReac Type Severity Reaction Status Date / Time No Known Allergies Allergy Verified 05/28/20 13:15 Physical Exam Vitals: Vital Signs Temp Pulse Pulse Resp BP BP Pulse Ox 05/29/20 09:48 99.6 F 68 18 106/67 95 05/29/20 07:30 77 20 05/29/20 05:33 97.9 F 77 122/77 94 L 05/29/20 02:29 97.7 F 78 102/67 93 L 05/28/20 21:58 99.6 F 89 111/77 94 L 05/28/20 17:30 98.2 F 91 20 132/84 95 05/28/20 14:37 99.3 F 84 18 136/78 98 05/28/20 12:49 18 Intake and Output 05/28/20 05/29/20 05/29/20 22:59 06:59 14:59 Intake Total 580 Balance 580 Intake: Intake, IV Titration 580 Amount Azithromycin 500 mg In 250 Sodium Chloride 0.9% 250 ml @ 250 mls/hr IVPB ONCE STA Rx#:[id number] Sodium Chloride 0.9% 1, 330 000 ml @ 130 mls/hr IV . Q7H42M STA Rx#:[id number] Other: Voiding Method Toilet Toilet # Voids 2 2 # Bowel Movements 1 The patient appeared well nourished and normally developed. She has a typical Down's features. No signs of any respiratory distress. Currently is on room air oxygen. Vital signs as documented. Head exam is unremarkable. No scleral icterus or corneal arcus noted. Neck is without jugular venous distension, thyromegaly, or carotid bruits. Carotid upstrokes are brisk bilaterally. Lungs are diminished and the patient has limited contact in the lung bases bilaterally.. Cardiac exam reveals the PMI to be normally sized and situated. Rhythm is regular. First and second heart sounds normal. No murmurs, rubs or gallops. Abdominal exam reveals normal bowel sounds, no masses, no organomegaly and no aortic enlargement. Extremities are nonedematous and both femoral and pedal pulses are normal. Results - Laboratory Findings CBC and BMP: 05/28/20 12:43 05/28/20 12:43 PT/INR, D-dimer PT 10.8 sec (9.0-12.0) 05/28/20 12:43 INR 1.0 (<1.2) 05/28/20 12:43 D-Dimer 0.39 mg/L FEU (<0.60) 05/28/20 12:43 Abnormal lab findings: Abnormal Labs 05/28/20 05/28/20 05/28/20 12:43 12:43 12:43 Hgb 18.7 H Hct 53.7 H Plt Count 139 L Lymphocytes # 0.6 L Glucose 118 H ALT 53 H C-Reactive Protein 11.2 H - Diagnostic Findings Chest x-ray: image reviewed Assessment and Plan Plan: 1 acute Covid 19 related pneumonia with limited infiltration of the lung bases and mild hypoxemia with a pulse ox ranging between 92-95% on room air oxygen. 2 shortness of breath secondary to above 3 fever secondary to above 4 Down syndrome 5 hypothyroidism 6 hyperlipidemia 7 scoliosis Plan I think this patient could've been ideal candidate for monoclonal antibodies. I think we had lost about opportunity to give this another the patient is currently admitted to the hospital. I'm going to recommend Decadron 6 mg by mouth daily for the next 10 days. He is a mild case of Covid 19 related pneumonia. Monitor telemetry monitors. Monitor fever pattern. Lovenox for DVT prophylaxis. Tolerating diet. No other issues for now. Resume home medicat ions. We'll continue to follow. Stop Rocephin and Zithromax.
[2020-05-29] MEDS: DEXAMETHASONE SOD PHOSPHATE 10 MG/ML 1 ML VIAL IV SCH (13:00)
[2020-05-29] MEDS: ENOXAPARIN 40 MG/0.4 ML SYRINGE SQ SCH (13:01)
[2020-05-29 13:52] LABS: C Reactive Protein 8.1 mg/L (<10.0)
[2020-05-29 20:12] VITALS: RESP 16
--- NOTE | 2020-05-29 21:20 | P.HPIM ---
History of Present Illness H&P Date: 05/29/20 Chief Complaint: Fever History of presenting complaint: This is a very pleasant 34-year-old patient with Down syndrome who follows with Dr. Rogers. Patient lives with his mother was also the guardian. Patient is at 2 caregivers. On the of this month 1 other caregivers came back and tested positive. Patient on the was having some nasal congestion. Subsequently the patient started having fever and body aches decreased appetite also had diarrhea for 3-4 days. Some decrease in taste smell was okay. Fever to 101 at home.. Brought into the ER. ER it was felt the patient be better served being admitted to the hospital. Patient's COVID 19 positive. Patient able to give history and helped by the mother at the bedside Review of systems: GEN.: Fever EYES: None HEENT: None NECK: None RESPIRATORY: Some shortness of breath CARDIOVASCULAR: None GASTROINTESTINAL: Some diarrhea GENITOURINARY: None MUSCULOSKELETAL: [Muscle achiness LYMPHATICS: None HEMATOLOGICAL: None PSYCHIATRY: None NEUROLOGICAL: None Past medical history to include: Hyperlipidemia, hypothyroid, scoliosis, right leg is shorter with the issue of left, Down syndrome, ventral hernia, rosacea depression Social history: Lives with his mother. No smoking. Alcohol occasionally. Family history: Reviewed, noncontributory to presentation Physical examination: VITAL SIGNS: 98, 90, 20, 109/73, 93% on room air GENERAL: BMI 31.5, sitting up on the bed. Tired. Down syndrome features. EYES: Pupils equal. Conjunctiva normal. HEENT: External appearance of nose and ears normal, oral cavity grossly normal. NECK: JVD not raised; masses not palpable. HEART: First and second heart sounds are normal; no edema. LUNGS: Respiratory rate increased; bilateral fine crackles. ABDOMEN: Soft, nontender, liver spleen not palpable, no masses palpable. PSYCH: Alert and oriented x3; mood and affect tiredl. NEUROLOGICAL: Cranial nerves grossly intact; no facial asymmetry, power and sensation grossly intact. LYMPHATICS: No lymph nodes palpable in the axilla and neck INVESTIGATIONS, reviewed in the clinical context: WBC 3.9 hemoglobin 8.7 platelets 139 d-dimer 0.39 potassium 4.2 creatinine 1.19 CRP 11.2 EKG tracing personally reviewed by me-normal sinus rhythm some nonspecific findings Chest x-ray film personally reviewed by me-mild scattered infiltrates Assessment and plan: -COVID 19 pneumonia. Patient placed on IV Decadron and Lovenox. Pulmonary consulted -Obesity BMI 31.5. Outpatient weight loss measures. Follow with PCP -Hypothyroid. Continue with Synthroid -Down syndrome Care was discussed in detail with the mother at the bedside. Questions answered. Past Medical History Past Medical History: Eye Disorder, Hyperlipidemia, Musculoskeletal Disorder, Skin Disorder, Thyroid Disorder Additional Past Medical History / Comment(s): Scoliosis, leg length discrepancy (uses shoe lift), Down syndrome, ventral hernia. Rosacea. Recent Conjunctivitis, on eye drop currently. History of Any Multi-Drug Resistant Organisms: None Reported Past Surgical History: Adenoidectomy, Ear Surgery, Hernia Repair, Tonsillectomy Additional Past Surgical History / Comment(s): BMT x2. Past Anesthesia/Blood Transfusion Reactions: Postoperative Nausea & Vomiting (PONV) Additional Past Anesthesia/Blood Transfusion Reaction / Comment(s): A little agitated after CT w/ anesthesia. Past Psychological History: Depression, PTSD Additional Psychological History / Comment(s): In counseling Smoking Status: Never smoker Past Alcohol Use History: Occasional Past Drug Use History: None Reported - Past Family History Mother Family Medical History: No Reported History Medications and Allergies Home Medications Medication Instructions Recorded Confirmed Type Levothyroxine Sodium [Synthroid] 75 mcg PO DAILY 11/13/16 05/28/20 History Vitamin A,C,E(Unknown) 1 tab PO DAILY 05/28/20 05/28/20 History Vitamin B-12(Unknown Dose) 1 tab PO DAILY 05/28/20 05/28/20 History Vitamin D3(Unknown Dose) 1 tab PO DAILY 05/28/20 05/28/20 History Zinc 50 mg PO DAILY 05/28/20 05/28/20 History Allergies Allergy/AdvReac Type Severity Reaction Status Date / Time No Known Allergies Allergy Verified 05/28/20 13:15 Physical Exam Vitals: Vital Signs Temp Pulse Pulse Resp BP BP Pulse Ox 05/29/20 09:48 99.6 F 68 18 106/67 95 05/29/20 07:30 77 20 05/29/20 05:33 97.9 F 77 122/77 94 L 05/29/20 02:29 97.7 F 78 102/67 93 L 05/28/20 21:58 99.6 F 89 111/77 94 L 05/28/20 17:30 98.2 F 91 20 132/84 95 05/28/20 14:37 99.3 F 84 18 136/78 98 05/28/20 12:49 18 05/28/20 11:52 98.0 F 90 20 109/73 93 L Intake and Output 05/28/20 05/29/20 05/29/20 22:59 06:59 14:59 Intake Total 580 Balance 580 Intake: Intake, IV Titration 580 Amount Azithromycin 500 mg In 250 Sodium Chloride 0.9% 250 ml @ 250 mls/hr IVPB ONCE STA Rx#:[id number] Sodium Chloride 0.9% 1, 330 000 ml @ 130 mls/hr IV . Q7H42M STA Rx#:[id number] Other: Voiding Method Toilet Toilet # Voids 2 2 # Bowel Movements 1 Results CBC & Chem 7: 05/28/20 12:43 05/28/20 12:43 Labs: Abnormal Lab Results - Last 24 Hours (Table) 05/28/20 05/28/20 05/28/20 Range/Units 12:43 12:43 12:43 Hgb 18.7 H (13.0-17.5) gm/dL Hct 53.7 H (39.0-53.0) % Plt Count 139 L (150-450) k/uL Lymphocytes # 0.6 L (1.0-4.8) k/uL Glucose 118 H (74-99) mg/dL ALT 53 H (4-49) U/L C-Reactive Protein 11.2 H (<10.0) mg/L Thrombosis Risk Factor Assmnt - Choose All That Apply Any of the Below Risk Factors Present?: No Other Risk Factors: No Other congenital or acquired thrombophilia - If yes, enter type in comment: No Thrombosis Risk Factor Assessment Level: Very Low Risk
[2020-05-30] MEDS ORDERED: LEVOTHYROXINE 75 MCG TAB PO SCH (06:30)
--- NOTE | 2020-05-30 07:02 | CONS ---
CONSULTATION DATE OF SERVICE: 05/29/2020 REASON FOR CONSULTATION: COVID-19 pneumonia. HISTORY OF PRESENT ILLNESS: The patient is a 34-year-old male with a past medical history of Down syndrome in this patient who has been diagnosed with COVID-19 on May 22. Patient's did have symptoms a few days before he was diagnosed with COVID-19 infection. The patient has been brought into the ER for evaluation of fever of 101 degrees Fahrenheit and now having increasing shortness of breath. The patient denies having any headache or URI symptoms. Denies any chest pain. He did have a cough, not bringing up any sputum. No vomiting has been reported. However, he did have some diarrhea. Most of the information has been provided by the mother present at the bedside. On presentation to the hospital, the patient is afebrile. The patient is currently maintaining his oxygen saturation between 93-94% on room air. The patient did have a normal white count with no lymphopenia. D-dimer was normal. Creatinine was normal. ALT mildly elevated. CRP of 11.2, repeat 8.1, procalcitonin was normal. The patient is currently being treated with Tylenol, dexamethasone, Lovenox. Infectious Disease was consulted for further management and need for antibiotic therapy. The patient also received Rocephin and Zithromax. REVIEW OF SYSTEMS: Positive points have been mentioned in HPI. Rest of systems are negative. PAST MEDICAL HISTORY: Down syndrome, hyperlipidemia, skin disorder, hypothyroidism, scoliosis. PAST SURGICAL HISTORY: Tonsillectomy, hernia repair, adenoidectomy, knee surgery. SOCIAL HISTORY: No history of smoking. Occasionally drinks. No drug use. FAMILY HISTORY: No pertinent findings noticed. ALLERGIES: No known drug allergies. MEDICATIONS: The patient is currently on Tylenol, dexamethasone, Lovenox, Synthroid, Zofran, and received Rocephin and Zithromax. PHYSICAL EXAMINATION: VITAL SIGNS: Blood pressure 115/63 with a pulse of 72, temperature 98.4, he is 93% on room air. GENERAL DESCRIPTION: Patient is a middle-aged male lying in bed in no distress. No tachypnea or accessory muscles of respiration use. HEENT: Examination shows no pallor or scleral icterus. Oral mucous membrane is dry. NECK: Trachea central, no thyromegaly. LUNGS: Unlabored breathing, decreased intensity of breath sounds, no wheeze. HEART: S1-S2, regular rate and rhythm. ABDOMEN: Soft, no tenderness. No guarding or rigidity. No organomegaly. EXTREMITIES: No edema of the feet. SKIN: No rash or mass palpable. NEUROLOGICAL: Patient is awake, alert, oriented times three. Mood and affect normal. LABS: Hemoglobin is 18.3, white count 3.9. D-dimer is normal. Creatinine is 1.19, ALT elevated 53. CRP of 11.2. The patient did have a chest x-ray, correlate for pneumonia. DIAGNOSTIC IMPRESSION: Patient admitted to the hospital with increased shortness of breath and fever. This patient has been diagnosed with COVID-19 infection about a week ago, now presenting to the hospital with worsening symptoms. However, the patient is currently stable and he is able to maintain his sats without need for supplemental oxygen and no evidence of any secondary bacterial pneumonia. PLAN: 1. No need for systemic antibiotic therapy. 2. Oxygen saturations need to be monitored closely, as the patient may qualify for remdesivir. 3. The patient is currently covered with Lovenox. We will add zinc, vitamin C, and vitamin D. 4. Droplet isolation and respiratory support. 5. We will follow on clinical condition and further adjust medication if needed. Thank you for this consultation. Will follow this patient along with you. MMODL / IJN: [id number] /
[2020-05-30] MEDS: ENOXAPARIN 40 MG/0.4 ML SYRINGE SQ SCH (08:11)
[2020-05-30] MEDS: DEXAMETHASONE SOD PHOSPHATE 10 MG/ML 1 ML VIAL IV SCH (08:11)
[2020-05-30] MEDS ORDERED: ASCORBIC ACID 500 MG TAB PO SCH (09:00)
[2020-05-30] MEDS ORDERED: CHOLECALCIFEROL 25 MCG (1000 IU) TABLET PO SCH (09:00)
[2020-05-30] MEDS ORDERED: ZINC SULFATE 220 MG CAP PO SCH (09:00)
[2020-05-30 09:29] LABS: C Reactive Protein <0.4 mg/dL (0.0-0.8); LDH 155 U/L (120-246)
[2020-05-30 10:16] VITALS: BP 113/64; TEMP 98.3
[2020-05-30 12:01] VITALS: PULSE 75
--- NOTE | 2020-05-30 12:43 | P.PN ---
Subjective Progress Note Date: 05/30/20 34-year-old male patient, Down syndrome, diagnosed having COVID 19 on 05/22/2020. The patient is department yesterday with fever of 11.6F and along with some increased shortness of breath and nausea and vomiting and diarrhea. He was also having some cough. His blood work showing a CRP of 11, CPK of 79, LFTs are normal, proBNP level of 15, electrolytes are normal, d-dimer is at 0.3, white cell count is at 3.9 with a hemoglobin of 18.7. Chest x-ray showing minimal infiltration of the lung bases bilaterally along with some elevation of the right hemidiaphragm. The patient's oxygenation is stable with 94% on room air oxygen. The patient's body mass index is 31.5. 05/30/2020, the patient is on room air oxygen. Doing well. No specific complaints. He was started on Decadron yesterday. No respiratory difficulties. Inflammatory markers are low including a low LDH of 155 and a CRP less than 0.4. No nausea. No vomiting. No diarrhea. No obvious signs of respiratory distress. Objective - Vital Signs Vital signs: Vital Signs Temp 98.3 F 05/30/20 10:00 Pulse 75 05/30/20 12:00 Resp 16 05/30/20 08:00 BP 113/64 05/30/20 10:00 Pulse Ox 91 L 05/30/20 12:00 Intake & Output 05/29/20 05/30/20 05/30/20 18:59 06:59 18:59 Other: Voiding Method Toilet Toilet Toilet # Voids 3 # Bowel Movements 1 - Exam The patient appeared well nourished and normally developed. She has a typical Down's features. No signs of any respiratory distress. Currently is on room air oxygen. Vital signs as documented. Head exam is unremarkable. No scleral ic terus or corneal arcus noted. Neck is without jugular venous distension, thyromegaly, or carotid bruits. Carotid upstrokes are brisk bilaterally. Lungs are diminished and the patient has limited contact in the lung bases bilaterally.. Cardiac exam reveals the PMI to be normally sized and situated. R hythm is regular. First and second heart sounds normal. No murmurs, rubs or gallops. Abdominal exam reveals normal bowel sounds, no masses, no organomegaly and no aortic enlargement. Extremities are nonedematous and both femoral and pedal pulses are normal. - Labs CBC & Chem 7: 05/28/20 12:43 05/28/20 12:43 Labs: Microbiology - Last 24 Hours (Table) 05/28/20 14:15 Blood Culture - Preliminary Blood No Growth after 24 hours 05/28/20 14:00 Blood Culture - Preliminary Blood No Growth after 24 hours Assessment and Plan Plan: 1 acute Covid 19 related pneumonia with limited infiltration of the lung bases and mild hypoxemia with a pulse ox ranging between 92-95% on room air oxygen. 2 shortness of breath secondary to above 3 fever secondary to above 4 Down syndrome 5 hypothyroidism 6 hyperlipidemia 7 scoliosis Plan The patient clinically is improved. The patient will receive a total of 10 day course of Decadron 6 mg and he can be potentially discharged today if no objections from the medical team. Continue quarantining at home. The patient has no active respiratory issues for now.
--- NOTE | 2020-05-30 19:01 | PN ---
PROGRESS NOTE DATE OF SERVICE: 05/30/2020 REASON FOR FOLLOWUP: COVID-19 pneumonia. INTERVAL HISTORY: The patient was seen on rounds this morning. The patient has been afebrile. The patient is breathing comfortably on room air. Denies having any chest pain or shortness of breath. Occasional cough. No abdominal pain or diarrhea. PHYSICAL EXAMINATION: Blood pressure 113/64, pulse 75, temperature 98.3. He is 92% on room air. General description is a young male up in the room in no distress. RESPIRATORY SYSTEM: Unlabored breathing with decreased intensity of breath sounds. No wheeze. HEART: S1, S2. Regular rate and rhythm. ABDOMEN: Soft. No tenderness. LABS: D-dimer is 0.37. CRP normalized to less than 0.4. DIAGNOSTIC IMPRESSION AND PLAN: Patient with acute COVID-19 infection in this patient who seems to have shown overall clinical improvement with supportive treatment of Lovenox, dexamethasone, zinc and ascorbic acid. He will go home on a tapering course of dexamethasone, zinc close outpatient followup. Mother at the bedside. Questions were answered. MMODL / IJN: [id number] /
--- NOTE | 2020-06-01 15:00 | P.DS ---
Providers Date of admission: 05/28/20 14:00 Expected date of discharge: 05/30/20 Attending physician: Jean Carlos Tobias Consults: 05/29/20 12:03 Consult Physician Urgent Consulting Provider: Juan Lomas Consult Reason/Comments: covid Do you want consulting provider notified?: Yes 05/29/20 12:05 Consult Physician Urgent Consulting Provider: Shanelle Mg Consult Reason/Comments: Covid Do you want consulting provider notified?: Yes Primary care physician: [facility] [place] [facility] Course: Chief Complaint: Fever History of presenting complaint: This is a very pleasant 34-year-old patient with Down syndrome who follows with Dr. Rogers. Patient lives with his mother ; also the guardian. has 2 caregivers. On the of this month 1 of the caregivers came back COVID positive. on the was having some nasal congestion. Subsequently started having fever and body aches decreased appetite also had diarrhea for 3-4 days. Some decrease in taste ,smell was okay. Fever to 101 at home.. Brought into the ER. ER it was felt the patient be better served being admitted to the hospital. Patient's COVID 19 positive. Patient able to give history and helped by the mother at the bedside Admitted with COVID 19 pneumonia. Placed on dexamethasone and Lovenox. Improving. Today-doing well. Feels much better. Mother the bedside. Oral intake is good. Discussed with pulmonary. Okay to discharge. Discussed with the mother to bring the patient back if symptoms do get worse. Isolation. Otherwise patient is feeling much improved. To use incentive spirometry Consultation: Dr. Lomas from pulmonary Past medical history to include: Hyperlipidemia, hypothyroid, scoliosis, right leg is shorter with the issue of left, Down syndrome, ventral hernia, rosacea depression Social history: Lives with his mother. No smoking. Alcohol occasionally. Family history: Reviewed, noncontributory to presentation Physical examination: VITAL SIGNS: 98.3, 75, 16, 113 x 64, 92% on room air GENERAL: BMI 31.5, sitting up on the bed. Comfortable Down syndrome features. EYES: Pupils equal. Conjunctiva normal. HEENT: External appearance of nose and ears normal, oral cavity grossly normal. NECK: JVD not raised; masses not palpable. HEART: First and second heart sounds are normal; no edema. LUNGS: Respiratory rate normal; bilateral fine crackles. ABDOMEN: Soft, nontender, liver spleen not palpable, no masses palpable. PSYCH: Alert and oriented x3; mood and affect cheerful INVESTIGATIONS, reviewed in the clinical context: Today: D-dimer 0.37 CRP less than 0.4 WBC 3.9 hemoglobin 8.7 platelets 139 d-dimer 0.39 potassium 4.2 creatinine 1.19 CRP 11.2 pro-calcitonin 0.08 EKG tracing personally reviewed by me-normal sinus rhythm some nonspecific findings Chest x-ray film personally reviewed by me-mild scattered infiltrates Assessment and plan: -COVID 19 pneumonia. Patient placed on IV Decadron and Lovenox. Improved -Obesity BMI 31.5. Outpatient weight loss measures. Follow with PCP -Hypothyroid. Continue with Synthroid -Down syndrome Disposition: Home Patient Condition at Discharge: Fair Plan - Discharge Summary Discharge Rx Participant: Yes New Discharge Prescriptions: New dexAMETHasone [Hexadrol] 6 mg PO DAILY #24 tablet Ascorbic Acid [Vitamin C] 1,000 mg PO DAILY #60 tab Rivaroxaban [Xarelto] 2.5 mg PO DAILY #14 tablet Continue Levothyroxine Sodium [Synthroid] 75 mcg PO DAILY Vitamin D3(Unknown Dose) 1 tab PO DAILY Vitamin B-12(Unknown Dose) 1 tab PO DAILY Vitamin A,C,E(Unknown) 1 tab PO DAILY Zinc 50 mg PO DAILY Discharge Medication List Levothyroxine Sodium [Synthroid] 75 mcg PO DAILY 11/13/16 [History] Vitamin A,C,E(Unknown) 1 tab PO DAILY 05/28/20 [History] Vitamin B-12(Unknown Dose) 1 tab PO DAILY 05/28/20 [History] Vitamin D3(Unknown Dose) 1 tab PO DAILY 05/28/20 [History] Zinc 50 mg PO DAILY 05/28/20 [History] Ascorbic Acid [Vitamin C] 1,000 mg PO DAILY #60 tab 05/30/20 [Rx] Rivaroxaban [Xarelto] 2.5 mg PO DAILY #14 tablet 05/30/20 [Rx] dexAMETHasone [Hexadrol] 6 mg PO DAILY #24 tablet 05/30/20 [Rx] Follow up Appointment(s)/Referral(s): Adrian Rogers MD [Primary Care Provider] - 06/08/20 1:20 pm [facility], [NON-STAFF] - Juan Lomas MD [STAFF PHYSICIAN] - 06/30/20 2:30 pm Patient Instructions/Handouts: Coronavirus Disease 2019 (COVID-19), How to Use an Incentive Spirometer (DC) Activity/Diet/Wound Care/Special Instructions: send home with incentive spirometer Discharge Disposition: HOME SELF-CARE
== END 2020-05-30 13:50 | disposition home or self-care (01) | DRG 177 ==
LOC: EC 11:27 → 4SSUR 14:00
PROVIDERS: ADMIT Hospitalist; ATTEND Hospitalist
DX: U07.1 COVID-19 (principal); J12.82 Pneumonia due to coronavirus disease 2019; M41.9 Scoliosis, unspecified; K52.9 Noninfective gastroenteritis and colitis, unspecified; E03.9 Hypothyroidism, unspecified; E66.9 Obesity, unspecified; E78.5 Hyperlipidemia, unspecified; E86.0 Dehydration; F32.9 Major depressive disorder, single episode, unspecified; F43.10 Post-traumatic stress disorder, unspecified; Q90.9 Down syndrome, unspecified; Z68.31 Body mass index [BMI] 31.0-31.9, adult; Z79.890 Hormone replacement therapy; H10.9 Unspecified conjunctivitis; I44.4 Left anterior fascicular block; R09.02 Hypoxemia; Z90.89 Acquired absence of other organs; L71.9 Rosacea, unspecified
CPT/HCPCS: 36415; 71045; 71046; 80053; 82550; 83605; 83615; 83735; 83880; 84145; 84484; 85025; 85379; 85610; 85730; 86140; 87040; 93005; 96361; 96365; 96375; 99285

== ENCOUNTER → 2022-03-23 | Outpatient (CLI) | payer BC, OTHER ==
[2022-03-23 16:42] LABS: HCT 54.1 % (39.6-50.0); HGB 17.7 g/dL (13.0-17.0); MCH 32.7 pg (27.0-32.0); MCHC 32.7 g/dL (32.0-37.0); MCV 99.8 fL (80.0-97.0); Mean Platelet Volume 9.5 fL (9.5-12.2); NRBC Per 100 WBC 0 /100 WBCS (0.0-0.0); Platelet Count 272 X 10*3/uL (140-440); RBC 5.42 X 10*6/uL (4.40-5.60); RDW 13.2 % (11.5-14.5); WBC 6.04 X 10*3/uL (4.50-10.00)
[2022-03-23 17:03] LABS: Chol/HDL Ratio 4.44 Ratio; LDL Cholesterol,Calculated 103.1 mg/dL (0.0-131.0)
== END | disposition home or self-care (01) ==
LOC: LABWHC1 09:01
PROVIDERS: ATTEND Family Medicine
DX: Z00.01 Encounter for general adult medical examination with abnormal findings (principal); E03.9 Hypothyroidism, unspecified
CPT/HCPCS: 36415; 80061; 84439; 84443; 84481; 85027

== ENCOUNTER → 2022-12-19 | Outpatient (CLI) | payer BC, OTHER ==
[2022-12-19 16:35] LABS: HCT 54.9 % (39.6-50.0); MCH 32.8 pg (27.0-32.0); MCHC 32.8 d/dL (32.0-37.0); Mean Platelet Volume 9.1 FL (9.5-12.2); NRBC Per 100 WBC 0 X 10*3/uL (0.00-0.01); Platelet Count 252 X 10*3/uL (140-440); RBC 5.49 X 10*6/uL (4.40-5.60); RDW 13.2 % (11.5-14.5); WBC 6.57 X 10*3/uL (4.50-10.00)
[2022-12-19 17:03] LABS: ALT 46 U/L (10-49); AST 30 U/L (14-35); Albumin 4.6 d/dL (3.8-4.9); Albumin/Globulin Ratio 1.77 Ratio (1.60-3.17); Alkaline Phosphatase 86 U/L (41-126); BUN/Creat Ratio 12.54 Ratio (12.00-20.00); Blood Urea Nitrogen 16.3 mg/dL (9.0-27.0); Calcium 9.8 mg/dL (8.7-10.3); Carbon Dioxide 28.1 mmol/L (21.6-31.8); Chloride 102 mmol/L (96-109); Globulin 2.6 d/dL (1.6-3.3); Glucose 92 mg/dL (70-110); LDL Cholesterol,Calculated 122.6 mg/dL (0.0-131.0); Potassium 4.2 mmol/L (3.5-5.5); Sodium 142 mmol/L (135-145); T4, Free (Free Thyroxine) 1.16 ng/dL (0.80-1.80); Total Bilirubin 0.5 mg/dL (0.3-1.2); Total Protein 7.2 d/dL (6.2-8.2)
== END | disposition home or self-care (01) ==
LOC: LABWHC1 08:03
PROVIDERS: ATTEND Family Medicine
DX: Z00.01 Encounter for general adult medical examination with abnormal findings (principal); E03.9 Hypothyroidism, unspecified
CPT/HCPCS: 36415; 80053; 80061; 84439; 84443; 84481; 85027

== ENCOUNTER → 2022-12-30 | Outpatient (CLI) | payer BC, OTHER ==
--- NOTE | 2022-12-30 15:46 | MR ---
EXAMINATION TYPE: MR lumbar spine wo con DATE OF EXAM: 12/30/2022 COMPARISON: CT lumbar spine 12/05/2022 HISTORY: Low back pain TECHNIQUE: Multiplanar, multisequence images of the lumbar spine were acquired without IV contrast. FINDINGS: Lumbar segments are intact. No paraspinal masses are identified. Conus medullaris has a normal appe arance. Dextrocurvature of the lumbar spine with apex at L2. Type I Modic changes involving the super ior endplate of L3 vertebral body and inferior endplate of the L2 vertebral body. L1-L2: No herniation or disc protrusion. Mild broad-based disc bulge without significant effacement o f anterior thecal sac. No canal stenosis is present. No significant neural foraminal stenosis. L2-L3: No herniation or disc protrusion. Mild broad-based disc bulge without significant effacement o f anterior thecal sac. No canal stenosis is present. Bilateral facet arthropathy. Mild to moderate le ft neural foraminal stenosis. Mild right neural foraminal stenosis. L3-L4: No herniation, protrusion or disc bulging. No canal stenosis is present. Bilateral facet arth ropathy. Mild to moderate left neural foraminal stenosis. Mild right neural foraminal stenosis. L4-L5: No herniation, protrusion or disc bulging. No canal stenosis is present. Bilateral facet arth ropathy. Mild bilateral neural foraminal stenosis. L5-S1: No herniation, protrusion or disc bulging. No canal stenosis is present. Foramina are patent bilaterally. IMPRESSION: 1. No disc herniation or significant central canal stenosis. 2. Mild multilevel degenerative disc disease and facet arthropathy. 3. Moderate dextrocurvature of the lumbar spine with apex at L2.
== END | disposition home or self-care (01) ==
LOC: RADMRIMAIN 12:56
PROVIDERS: ATTEND Orthopaedic Surgery
DX: M51.36 Other intervertebral disc degeneration, lumbar region (principal); M47.816 Spondylosis without myelopathy or radiculopathy, lumbar region
CPT/HCPCS: 72148

== ENCOUNTER 2023-02-26 18:20 | Emergency (ER) | payer BC, OTHER ==
--- NOTE | 2023-02-26 19:41 | ED ---
Psych HPI - General Source: patient Mode of arrival: ambulatory <Clayton Freeman - Last Filed: 02/28/23 00:36> - General Source: patient, family <LeslyedontaSukhjinder - Last Filed: 03/22/23 15:09> - General Chief Complaint: Psychiatric Symptoms Stated Complaint: Mental Health, Hearing Voices Time Seen by Provider: 02/26/23 19:40 - History of Present Illness Initial Comments: 37-year-old male presenting with chief complaint of suicidal ideation. No plan. (Clayton Freeman) Patient brought to the ED by his mother and stepfather for evaluation. Patient has Down syndrome. Per mother, the patient has had intermittent visual hallucinations since 2008, but over the past 2-3 months or so, he has been experiencing more visual and auditory hallucinations. Per mother, what concerned her the most is that the patient reported hearing voices tonight telling him to hurt himself/kill himself, so she decided to bring him to the ED. Mother states that the patient drinks an occasional beer on a Friday night, but otherwise does not use alcohol, and she states that he does not use any illicit drugs. Mother denies any recent changes in the patient's medication regimen or day-to-day schedule. Patient admits to hearing voices, but he states that he tells the voices to "shut up". Patient denies wanting to commit suicide or hurt himself. Patient denies homicidal ideations, trauma or injury, any pain, headache, focal neuro deficit, chest pain or pressure, dyspnea, dizziness, abdominal pain, nausea or vomiting, fever or chills, or any other symptoms or complaints. (Sukhjinder Patrick) - Related Data Home Medications Medication Instructions Recorded Confirmed Levothyroxine Sodium [Synthroid] 75 mcg PO DAILY 11/13/16 02/26/23 Vitamin D3(Unknown Dose) 1 tab PO DAILY 05/28/20 02/26/23 Doxycycline Monohydrate 50 mg PO DAILY 12/05/22 02/26/23 Multivitamins, Thera [Multivitamin 1 tab PO DAILY 12/05/22 02/26/23 (formulary)] Rosuvastatin Calcium 5 mg PO DAILY 12/05/22 02/26/23 Allergies Allergy/AdvReac Type Severity Reaction Status Date / Time No Known Allergies Allergy Verified 12/05/22 15:35 Review of Systems ROS Other: All systems not noted in ROS Statement are negative. <Clayton Freeman - Last Filed: 02/28/23 00:36> ROS Other: All systems not noted in ROS Statement are negative. <Sukhjinder Patrick - Last Filed: 03/22/23 15:09> ROS Statement: Those systems with pertinent positive or pertinent negative responses have been documented in the HPI. Past Medical History Past Medical History: Eye Disorder, Hyperlipidemia, Musculoskeletal Disorder, Skin Disorder, Thyroid Disorder Additional Past Medical History / Comment(s): Scoliosis, leg length discrepancy (uses shoe lift), Down syndrome, ventral hernia. Rosacea. Recent Conjunctivitis, on eye drop currently. History of Any Multi-Drug Resistant Organisms: None Reported Past Surgical History: Adenoidectomy, Ear Surgery, Hernia Repair, Tonsillectomy Additional Past Surgical History / Comment(s): BMT x2. Past Anesthesia/Blood Transfusion Reactions: Postoperative Nausea & Vomiting (PONV) Additional Past Anesthesia/Blood Transfusion Reaction / Comment(s): A little agitated after CT w/ anesthesia. Past Psychological History: Depression, PTSD Smoking Status: Never smoker Past Alcohol Use History: Occasional Past Drug Use History: None Reported - Past Family History Mother Family Medical History: No Reported History <Clayton Freeman - Last Filed: 02/28/23 00:36> General Exam Limitations: no limitations <Clayton Freeman - Last Filed: 02/28/23 00:36> General appearance: alert, other Head exam: Present: atraumatic Eye exam: Present: PERRL, EOMI ENT exam: Present: mucous membranes moist Neck exam: Absent: meningismus Respiratory exam: Present: normal lung sounds bilaterally. Absent: respiratory distress, wheezes, rales, rhonchi, stridor Cardiovascular Exam: Present: regular rate, normal rhythm, normal heart sounds, other (Normal radial pulses bilaterally) GI/Abdominal exam: Present: soft. Absent: tenderness, guarding Extremities exam: Absent: pedal edema Neurological exam: Present: alert, oriented X3, CN II-XII intact. Absent: motor sensory deficit Skin exam: Present: warm, dry, normal color <Sukhjinder Patrick - Last Filed: 03/22/23 15:09> Course <Sukhjinder Patrick - Last Filed: 03/22/23 15:09> Vital Signs 02/26/23 02/27/23 19:35 00:39 Temperature 98.1 F 98.3 F Pulse Rate 90 83 Respiratory 18 18 Rate Blood Pressure 145/84 140/89 O2 Sat by Pulse 98 95 Oximetry - Reevaluation(s) Reevaluation #1: 02/26/23 23:06 Patient has been medically cleared and EPS evaluation is pending at this time. Patient was endorsed to Dr. Bosch (secondary to end of my shift). Dr. Bosch to take over care of the patient at this time. (Sukhjinder Patrick) Medical Decision Making <Clayton Freeman - Last Filed: 02/28/23 00:36> <Sukhjinder Patrick - Last Filed: 03/22/23 15:09> - Medical Decision Making I performed the quick note portion of this visit electronically signed Clayton Freeman PA-C (Clayton Freeman) Was pt. sent in by a medical professional or institution ([facility], HARVESTING SUPERVISOR, urgent care, hospital, or [facility]...) When possible be specific @ -No Did you speak to anyone other than the patient for history (EMS, parent, family, police, friend...)? What history was obtained from this source @ -History was also obtained from the patient's mother. Did you review nursing and triage notes (agree or disagree)? Why? @ -I reviewed and agree with nursing and triage notes Were old charts reviewed (outside hosp., previous admission, EMS record, old EKG, old radiological studies, urgent care reports/EKG's, [facility] records)? Report findings @ -No old charts were reviewed Differential Diagnosis (chest pain, altered mental status, abdominal pain women, abdominal pain men, vaginal bleeding, weakness, fever, dyspnea, syncope, headache, dizziness, GI bleed, back pain, seizure, CVA, palpatations, mental health, musculoskeletal)? @ -Hallucinations, psychosis, medication reaction, illicit drug use, alcohol use, schizophrenia, schizoaffective disorder, anxiety, depression, psychiatric disease EKG interpreted by me (3pts min.). @ -None done X-rays interpreted by me (1pt min.). @ -None done CT interpreted by me (1pt min.). @ -None done U/S interpreted by me (1pt. min.). @ -None done What testing was considered but not performed or refused? (CT, X-rays, U/S, labs)? Why? @ -None What meds were considered but not given or refused? Why? @ -None Did you discuss the management of the patient with other professionals (professionals i.e. Dr., PA, HARVESTING SUPERVISOR, lab, RT, psych nurse, social services designee, inpatient care manager rn, teacher, major gifts officer, sample case porter)? Give summary @ -No Was smoking cessation discussed for >3mins.? @ -No Was critical care preformed (if so, how long)? @ -No Were there social determinants of health that impacted care today? How? (Homelessness, low income, unemployed, alcoholism, drug addiction, transportation, low edu. Level, literacy, decrease access to med. care, longterm, rehab)? @ -No Was there de-escalation of care discussed even if they declined (Discuss DNR or withdrawal of care, Hospice)? DNR status @ -No What co-morbidities impacted this encounter? (DM, HTN, Smoking, COPD, CAD, Cancer, CVA, ARF, Chemo, Hep., AIDS, mental health diagnosis, sleep apnea, morbid obesity)? @ -None Was patient admitted / discharged? Hospital course, mention meds given and route, prescriptions, significant lab abnormalities, going to OR and other pertinent info. @ -Patient has been medically cleared and EPS evaluation is pending at this time. Patient was endorsed to Dr. Bosch (secondary to end of my shift). Dr. Bosch to take over care of the patient at this time. (Sukhjinder Patrick) - Lab Data Lab Results 02/26/23 Range/Units 20:53 Urine Opiates Screen Not Detected (NotDetected) Ur Oxycodone Screen Not Detected (NotDetected) Urine Methadone Screen Not Detected (NotDetected) Ur Propoxyphene Screen Not Detected (NotDetected) Ur Barbiturates Screen Not Detected (NotDetected) U Tricyclic Antidepress Not Detected (NotDetected) Ur Phencyclidine Scrn Not Detected (NotDetected) Ur Amphetamines Screen Not Detected (NotDetected) U Methamphetamines Scrn Not Detected (NotDetected) U Benzodiazepines Scrn Not Detected (NotDetected) Urine Cocaine Screen Not Detected (NotDetected) U Marijuana (THC) Screen Not Detected (NotDetected) Disposition <Clayton Freeman - Last Filed: 02/28/23 00:36> Is patient prescribed a controlled substance at d/c from ED?: No <Sukhjinder Patrick - Last Filed: 03/22/23 15:09> Clinical Impression: Hallucinations Disposition: HOME SELF-CARE Referrals: Adrian Rogers MD [Primary Care Provider] - 1-2 days
[2023-02-26 19:56] VITALS: RESP 18
[2023-02-26 22:13] LABS: Amphetamine Screen,Urine Not Detected (NotDetected); Barbiturate Screen,Urine Not Detected (NotDetected); Benzodiazepines Screen,Urine Not Detected (NotDetected); Cocaine Screen,Urine Not Detected (NotDetected); Methadone Screen, Urine Not Detected (NotDetected); Opiate Screen,Urine Not Detected (NotDetected); Oxycodone Screen, Urine Not Detected (NotDetected); Phencyclidine Screen,Urine Not Detected (NotDetected); Tricyclic Antidepressant,Urine Not Detected (NotDetected); Urn Cannabinoid Scrn Not Detected (NotDetected)
[2023-02-27 00:40] VITALS: BP 140/89; PULSE 83; TEMP 98.3
== END 2023-02-27 00:40 | disposition home or self-care (01) ==
LOC: EC 18:20
DX: R44.3 Hallucinations, unspecified (principal); E78.5 Hyperlipidemia, unspecified; E07.9 Disorder of thyroid, unspecified; Z86.59 Personal history of other mental and behavioral disorders; Z79.890 Hormone replacement therapy; Z79.899 Other long term (current) drug therapy
CPT/HCPCS: 80306; 82075; 99285